=== PATIENT | male | born 1975 | race Caucasian/White ===

== ENCOUNTER → 2022-10-17 09:08 | Outpatient (BNVA) | payer OTHER, SELFPAY | PROVIDERS: Visit Provider Podiatrist Foot & Ankle Surgery | DX: M72.2 Plantar fascial fibromatosis (principal); L60.3 Nail dystrophy; M21.41 Flat foot [pes planus] (acquired), right foot; M21.42 Flat foot [pes planus] (acquired), left foot | CPT/HCPCS: 73630; 99203 ==

== ENCOUNTER → 2022-11-11 09:06 | Outpatient (BNVA) | payer OTHER, SELFPAY | PROVIDERS: Visit Provider Podiatrist Foot & Ankle Surgery | DX: L60.0 Ingrowing nail (principal) | CPT/HCPCS: 11730 ==

== ENCOUNTER → 2022-11-14 10:27 | Outpatient (BNVA) | payer OTHER, SELFPAY | PROVIDERS: Visit Provider Otolaryngology | DX: R04.0 Epistaxis (principal); J32.9 Chronic sinusitis, unspecified; R09.81 Nasal congestion; G47.33 Obstructive sleep apnea (adult) (pediatric); M26.623 Arthralgia of bilateral temporomandibular joint; E66.01 Morbid (severe) obesity due to excess calories; Z68.41 Body mass index [BMI] 40.0-44.9, adult | CPT/HCPCS: 99204 ==

== ENCOUNTER 2022-11-27 13:59 | Outpatient (CLI) | payer OTHER, SELFPAY ==
--- NOTE | 2022-11-27 14:00 | CT_ITS ---
WS: [id number] CT SINUSES TECHNIQUE: Noncontrast CT of the paranasal sinuses with coronal and sagittal reformatted images. CLINICAL INFORMATION: examination of the sinuses COMPARISON: None. DLP: 368.[address] scans at [facility] use at least one of these dose optimization techniques: automated e xposure control; mA and/or kV adjustment per patient size (includes targeted exams where dose is matc hed to clinical indication); or iterative reconstruction. FINDINGS: Mild RIGHT to LEFT nasal deviation measuring 2 to 3 mm. Paranasal sinuses are well aerated. Mild muco jessica thickening in the ethmoid air cells. Frontal sinuses are well aerated. Sphenoid sinuses are well aerated. Narrowing of the sphenoid sinus ostia with mild mucosal thickening. Maxillary sinuses well a erated. Mastoid air cells are well aerated. Narrowing of the ostiomeatal units bilaterally with mild mucosal thickening. Small RIGHT Lara cells contributing to stenosis. Mild mucosal thickening frontal ethmoi luz maria recesses. Mastoid air cells are well aerated. Normal posterior nasopharynx. Normal parapharyngeal fat. Partiall y visualized intracranial contents appear normal. CT/CT sinus wo con* [id number] IMPRESSION: 1. Mild RIGHT to LEFT nasal septal deviation measuring 2 to 3 mm. 2. Paranasal sinuses are well aerated with mild mucosal thickening in the ethm oid air cells and frontal ethmoidal recesses. 3. Mild narrowing of the ostiomeatal units bilaterally. 4. Mastoid air cells well aerated. Normal posterior nasopharynx. 5. No other suspicious findings.
== END 2022-11-27 14:00 | disposition home or self-care (01) ==
PROVIDERS: Visit Provider Otolaryngology
DX: J32.9 Chronic sinusitis, unspecified (principal); R04.0 Epistaxis; R09.81 Nasal congestion; J34.2 Deviated nasal septum
CPT/HCPCS: 70486

== ENCOUNTER → 2022-12-02 09:00 | Outpatient (BNVA) | payer OTHER, SELFPAY | PROVIDERS: Visit Provider Podiatrist Foot & Ankle Surgery | DX: L60.0 Ingrowing nail (principal) | CPT/HCPCS: 99213 ==

== ENCOUNTER → 2022-12-16 07:57 | Outpatient (BNVA) | payer OTHER, SELFPAY | PROVIDERS: PCP Nurse Practitioner; Visit Provider Otolaryngology | DX: R04.0 Epistaxis (principal); R09.81 Nasal congestion; J34.2 Deviated nasal septum; K13.79 Other lesions of oral mucosa; R09.89 Other specified symptoms and signs involving the circulatory and respiratory systems; G47.33 Obstructive sleep apnea (adult) (pediatric); Z68.41 Body mass index [BMI] 40.0-44.9, adult; E66.9 Obesity, unspecified | CPT/HCPCS: 99213; 99214 ==

== ENCOUNTER → 2023-01-05 07:48 | Outpatient (BNVA) | payer OTHER, SELFPAY | PROVIDERS: PCP Nurse Practitioner; Visit Provider Podiatrist Foot & Ankle Surgery | DX: E11.9 Type 2 diabetes mellitus without complications (principal); B35.1 Tinea unguium; L60.0 Ingrowing nail; Z79.84 Long term (current) use of oral hypoglycemic drugs | CPT/HCPCS: 99213 ==

== ENCOUNTER → 2023-03-30 08:04 | Outpatient (BNVA) | payer OTHER, SELFPAY | PROVIDERS: PCP Nurse Practitioner; Visit Provider Podiatrist Foot & Ankle Surgery | DX: L60.0 Ingrowing nail (principal); B35.1 Tinea unguium; E11.9 Type 2 diabetes mellitus without complications; Z79.84 Long term (current) use of oral hypoglycemic drugs | CPT/HCPCS: 11721 ==

== ENCOUNTER → 2023-09-28 08:41 | Outpatient (BNVA) | payer OTHER, SELFPAY | PROVIDERS: PCP Nurse Practitioner; Visit Provider Podiatrist Foot & Ankle Surgery | DX: L60.0 Ingrowing nail (principal); B35.1 Tinea unguium | CPT/HCPCS: 99213 ==